=== PATIENT | male | born 1935 | race Caucasian/White ===

== ENCOUNTER 2018-06-25 08:19 | Day surgery (SDC) | payer OTHER ==
[2018-06-24 14:15] VITALS: BMI 29.0
[2018-06-25 11:12] VITALS: TEMP 97.5
[2018-06-25 12:00] VITALS: BP 136/72; PULSE 54
--- NOTE | 2018-06-26 18:34 | PATH ---
Surgical Pathology Report Patient Name: HOMER CARO [facility]. Rec. #: [id number] /Age/Gender: 1935 (Age: 83) / M Account: [id number] Location: U-ENDOSCOPY Taken: 06/25/2018 Received: 06/25/2018 Reported: 06/26/2018 Physicians: Nasim Lazaro M.D. Specimen(s) Received A: MID TRANSVERSE COLON B: RIGHT COLON C: CECAL D: PROXIMAL TRANSVERSE COLON Clinical History Adenoma surveillance Postoperative diagnosis: Colon polyps, diverticulosis Final Diagnosis A. MID TRANSVERSE COLON, POLYP, BIOPSY: TUBULAR ADENOMA. B. COLON, RIGHT, POLYP, BIOPSY: TUBULAR ADENOMA. C. CECAL POLYP, BIOPSY: TUBULAR ADENOMA. D. PROXIMAL TRANSVERSE COLON, POLYP, BIOPSY: TUBULAR ADENOMA. Electronically Signed Francine Ruiz M.D. Gross Description A. Received in formalin, labeled "mid transverse colon polyp" is a verma, irregular portion of soft tissue measuring 0.4 cm. in greatest dimension. The specimen is submitted in toto in one cassette. B. Received in formalin, labeled "biopsy right colon polyp" are 2 verma, irregular portions of soft tissue averaging 0.2 cm. in greatest dimension. The specimens are submitted in toto in one cassette. C. Received in formalin, labeled "biopsy cecal polyp" is a verma, irregular portion of soft tissue measuring 0.4 cm. in greatest dimension. The specimen is submitted in toto in one cassette. D. Received in formalin, labeled "biopsy proximal transverse colon polyp" are 8 verma, irregular portions of soft tissue ranging from 0.1-0.2 cm. in greatest dimension. The specimens are submitted in toto in one cassette. /06/25/2018 saudi06/25/2018
== END 2018-06-25 12:08 | disposition home or self-care (01) ==
LOC: JASU-ENDO 08:19
PROVIDERS: ATTEND Internal Medicine Gastroenterology
PROC: 0DBL8ZX Excision of Transverse Colon, Via Natural or Artificial Opening Endoscopic, Diagnostic (ICD-10-PCS; 2018-06-25)
PROC: 0DBH8ZX Excision of Cecum, Via Natural or Artificial Opening Endoscopic, Diagnostic (ICD-10-PCS; 2018-06-25)
PROC: 0DBL8ZX Excision of Transverse Colon, Via Natural or Artificial Opening Endoscopic, Diagnostic (ICD-10-PCS; 2018-06-25)
PROC: 0DBK8ZX Excision of Ascending Colon, Via Natural or Artificial Opening Endoscopic, Diagnostic (ICD-10-PCS; principal; 2018-06-25 09:30)
DX: Z86.010 Personal history of colon polyps (principal); D12.3 Benign neoplasm of transverse colon; D12.2 Benign neoplasm of ascending colon; K57.30 Diverticulosis of large intestine without perforation or abscess without bleeding
CPT/HCPCS: 88305-TC